=== PATIENT | female | born 1950 | race Two or more races ===

== ENCOUNTER 2017-12-15 22:48 | Inpatient (IN) | payer MEDICARE, OTHER ==
[~2017-12-15] VITALS: Ht 165.1 cm; Wt 88.5 kg
--- NOTE | 2017-12-15 22:52 | NUR ---
BBRA FROM HOME WITH C/O SUBSTERNAL CHEST PAIN, 05/04, RADIATING TO THE L SHOULDER AND L ARM. PT IS AAOX4. RESP EVEN AND NONE LABORED. VSS. NO S/S OF ACUTE DISTRESS NOTED. SKIN DRY, PINK, AND WARM TO TOUCH. PT DENIES N/V/D. PT GOWNED AND PLACED ON MONITOR AND POX. CALL LIGHT WITHIN REACH. PER EMS, 2 EMILE SPRAYS AND 162 ASPIRIN WAS GIVEN IN FIELD. DAUGHTER OF PT BEDSIDE. AWAITING MD FOR EVAL.
--- NOTE | 2017-12-15 22:52 | NUR ---
BEDSIDE FOR EVAL
[2017-12-15] MEDS ORDERED: NITROGLYCERIN PACKET 1 GM PACKET ONE (23:09)
[2017-12-15] MEDS ORDERED: NITROGLYCERIN 0.4 MG/TAB BOTTLE ONE (23:09)
[2017-12-15] MEDS ORDERED: ASPIRIN 81 MG TAB.CHEW ONE (23:11)
[2017-12-15 23:15] LABS: BASOPHILS # (AUTO) 0.1 /CMM (0.0-0.2); BASOPHILS % (AUTO) 0.8 % (0.0-2.0); EOSINOPHILS # (AUTO) 0.3 /CMM (0.0-0.7); EOSINOPHILS % (AUTO) 4.3 % (0.0-6.0); HEMATOCRIT 35 % (33-45); LYMPHOCYTES # (AUTO) 2.9 /CMM (0.8-4.8); MEAN CORPUSCULAR HEMOGLOBIN 29 PG (26.0-33.0); MEAN CORPUSCULAR HGB CONC 34 g/dl (31.0-36.0); MEAN CORPUSCULAR VOLUME 85 fL (82-100); MONOCYTES # (AUTO) 0.8 /CMM (0.1-1.30); MONOCYTES % (AUTO) 10.5 % (2.0-12.0); NEUTROPHILS # (AUTO) 3.3 /CMM (1.8-8.9); NEUTROPHILS % (AUTO) 45.4 % (43.0-81.0); PLATELET COUNT (AUTO) 222 /CMM (150-450); RDW COEFFICIENT OF VARIATION 13.6 (11.5-15.0); RED BLOOD CELL COUNT(AUTO) 4.17 MIL/uL (4.0-5.2); WHITE BLOOD COUNT (AUTO) 7.4 K/uL (4.3-11.0)
[2017-12-15 23:26] LABS: CALCIUM, SERUM 9.3 mg/dL (8.5-10.1); CARBON DIOXIDE 28 mmol/L (21-32); CHLORIDE 106 mmol/L (98-107); GLUCOSE 189 mg/dL (74-106); SODIUM SERUM 140 mmol/L (136-145); UREA NITROGEN, BLOOD 21 mg/dL (7-18)
[2017-12-15] MEDS ORDERED: ASPIRIN 81 MG TAB.CHEW PO ONE (23:30)
[2017-12-15] MEDS ORDERED: NITROGLYCERIN PACKET 1 GM PACKET TD ONE (23:30)
[2017-12-15] MEDS ORDERED: NITROGLYCERIN 0.4 MG/TAB BOTTLE SL ONE (23:30)
[2017-12-15 23:34] LABS: TROPONIN I < 0.017 ng/mL (0.00-0.056)
[2017-12-15 23:38] LABS: D-DIMER 0.27 mg/L(FEU (0.17-0.50); INR 1.02 (0.87-1.13)
[2017-12-15 23:39] LABS: ALANINE AMINOTRANSFERASE 15 U/L (12-78); ALBUMIN 3.3 g/dL (3.4-5.0); ALKALINE PHOSPHATASE 76 U/L (46-116); ASPARTATE AMINOTRANSFERASE 9 U/L (15-37); B-TYPE NATRIURETIC PEPTIDE 245 PG/ML (0-125); BILIRUBIN,DIRECT 0.1 mg/dL (0.0-0.2); BILIRUBIN,TOTAL 0.3 mg/dL (0.2-1.0); TOTAL PROTEIN, SERUM 7.3 g/dL (6.4-8.2)
[2017-12-15] MEDS ORDERED: CARVEDILOL 6.25 MG TABLET PO ONE (23:45)
--- NOTE | 2017-12-15 23:45 | NUR ---
TELE 320-2
--- NOTE | 2017-12-15 23:51 | NUR ---
ER TALKING TO DR. UNRULY WILLAMS REGARDING PT ADMISSION.
[2017-12-16] MEDS ORDERED: NITROGLYCERIN 0.4 MG/TAB BOTTLE SL PRN
[2017-12-16] MEDS ORDERED: MAGNESIUM HYDROXIDE 30 ML UDC PO PRN
[2017-12-16] MEDS ORDERED: Z GUARD REMEDY 2 OZ OINT TP PRN
[2017-12-16] MEDS ORDERED: ACETAMINOPHEN 325 MG TABLET PO PRN
[2017-12-16] MEDS ORDERED: MAG HYDROX/AL HYDROX/SIMETH 30 ML UDC PO PRN
[2017-12-16] MEDS ORDERED: DEXTROSE 50%-WATER 50 ML DISP.SYRIN IV PRN
[2017-12-16] MEDS ORDERED: HYDROCODONE/APAP 5/325MG 1 EACH TABLET PO PRN
[2017-12-16] MEDS ORDERED: ZOLPIDEM TARTRATE 5 MG TABLET PO PRN
[2017-12-16] MEDS ORDERED: ONDANSETRON HCL/PF 4 MG/2 ML VIAL IVP PRN
[2017-12-16] MEDS ORDERED: INSULIN REGULAR, HUMAN 100 UNIT/ML 3 ML VIAL SQ PRN
[2017-12-16] MEDS ORDERED: MORPHINE SULFATE INJ 4 MG/ML DISP.SYRIN IV PRN
--- NOTE | 2017-12-16 00:04 | NUR ---
REPORT CALLED TO EXTRACORPOREAL TECHNICIANTERESE FARRELL. WILL TRANSPORT PT VIA ACLS PROTOCOL.
[2017-12-16 00:45] VITALS: BP 144/71
--- NOTE | 2017-12-16 00:45 | NUR ---
PARTY DEMONSTRATOR NOTES 0045 PT ARRIVED TO TELE UNIT VIA GURNEY IN STABLE CONDITION. PT IS SLOVENIAN SPEAKING. PT ABLE TO AMBULATE FROM GURNEY TO BED. PT IS A/O X4, AFEBRILE. RESPIRATIONS ARE EVEN AND UNLABORED, NOT IN ANY ACUTE DISTRESS NOTED. DAUGHTER ARLEY AT BEDSIDE. PUPILS ARE REACTIVE TO LIGHT. BILATERAL HAND ASPHALT SPREADER OPERATOR ARE STRONG AND EQUAL. TELE LEADS PLACED WITH SINUS MARILIA 58. ABDOMEN IS SOFT AND NONDISTENDED, BOWEL SOUNDS ARE PRESENT IN ALL 4 QUADRANTS UPON AUSCULTATION. DENIES ANY BLADDER DISCOMFORT. PT ABLE TO AMBULATE TO BATHROOM AND URINATE WITH NO DIFFICULTIES. DENIES ANY CHEST PAIN, SOB, N/V. IV SITE TO RAC INTACT, NO INFILTRATION NOTED. DRESSING KEPT CLEAN AND DRY. NO SKIN ISSUES OR INJURIES NOTED. SAFETY MEASURES IN PLACE. BED IS IN ITS LOW AND LOCKED POSITION. INSTRUCTED PT TO USE CALL LIGHT WHEN ASSISTANCE IS NEEDED, VERBALIZED UNDERSTANDING. CALL LIGHT IS LEFT WITHIN REACH. DR. UNRULY WILLAMS MADE AWARE OF ADMISSION.
[2017-12-16] MEDS: BLOOD SUGAR DIAGNOSTIC 1 EACH STRIP IN SCH ×3 (02:20→12:00)
[2017-12-16 04:00] VITALS: BP 98/46
--- NOTE | 2017-12-16 06:22 | NUR ---
RN CLOSING NOTES ALL NEEDS MET AND RENDERED. PT IS A/O X4, RESPIRATIONS ARE EVEN AND UNLABORED, NOT IN ANY ACUTE DISTRESS NOTED. PT DENIES ANY CHEST PAIN, SOB, N/V. TELE LEADS ON READING SR MARILIA 56. NO C/O HEADACHE. IV SITE INTACT, NO INFILTRATION NOTED. DRESSING KEPT CLEAN AND DRY. SAFETY MEASURES IN PLACE.BED IS IN ITS LOW AND LOCKED POSITION. INSTRUCTED PT TO USE CALL LIGHT WHEN ASSISTANCE IS NEEDED, CALL LIGHT IS LEFT WITHIN REACH. WILL ENDORSE TO NEXT SHIFT FOR CONTINUITY OF CARE.
[2017-12-16 06:27] LABS: BASOPHILS % (AUTO) 0.6 % (0.0-2.0); EOSINOPHILS # (AUTO) 0.3 /CMM (0.0-0.7); EOSINOPHILS % (AUTO) 4.4 % (0.0-6.0); HEMATOCRIT 33 % (33-45); HEMOGLOBIN 11.4 g/dL (11.5-14.8); LYMPHOCYTES # (AUTO) 2.5 /CMM (0.8-4.8); LYMPHOCYTES % (AUTO) 41.6 % (20.0-44.0); MEAN CORPUSCULAR HEMOGLOBIN 29 PG (26.0-33.0); MEAN CORPUSCULAR HGB CONC 34 g/dl (31.0-36.0); MEAN CORPUSCULAR VOLUME 85 fL (82-100); MONOCYTES # (AUTO) 0.6 /CMM (0.1-1.30); MONOCYTES % (AUTO) 9.9 % (2.0-12.0); NEUTROPHILS # (AUTO) 2.7 /CMM (1.8-8.9); NEUTROPHILS % (AUTO) 43.5 % (43.0-81.0); PLATELET COUNT (AUTO) 201 /CMM (150-450); RDW COEFFICIENT OF VARIATION 13.5 (11.5-15.0); RED BLOOD CELL COUNT(AUTO) 3.93 MIL/uL (4.0-5.2); WHITE BLOOD COUNT (AUTO) 6.1 K/uL (4.3-11.0)
--- NOTE | 2017-12-16 06:38 | NUR ---
RN NOTES BLOOD SUGAR 150. PT IS CURRENTLY NPO, NO COVERAGE AT THIS TIME. NO S/SX OF HYPO/HYPERGLYCEMIA NOTED. WILL CONTINUE TO MONITOR.
[2017-12-16] MEDS ORDERED: IV NS 0.9% 1,000 ML IV PRN (07:06)
[2017-12-16 07:12] VITALS: BP 134/66
[2017-12-16 07:25] LABS: CREATININE 0.7 mg/dL (0.6-1.3); MAGNESIUM 1.5 mg/dL (1.8-2.4); PHOSPHORUS 3.8 mg/dL (2.5-4.9); POTASSIUM 3.8 mmol/L (3.5-5.1)
[2017-12-16 07:30] LABS: THYROID STIMULATING HORMONE 3.877 uIU/mL (0.358-3.74)
[2017-12-16] MEDS ORDERED: REGADENOSON 0.4 MG/5 ML DISP.SYRIN IVP ONE (07:30)
--- NOTE | 2017-12-16 07:40 | NUR ---
HYPERCIL CORE TRANSFORMER ASSEMBLER OPENING NOTE PATIENT IS ALERT AND ORIENTED x4. NO PAIN AT THIS TIME. NO SOB OR DISTRESS NOTED. CALL LIGHT WITHIN REACH. SAFETY MEASURES IMPLEMENTED. ABLE TO COMMUNICATE NEEDS. IV INTACT AND PATENT ON RIGHT AC 18G. CURRENTLY NPO AT THIS TIME FOR NUCLEAR MEDICINE STRESS TEST. BLOOD SUGARS TO BE MONITORED THROUGHOUT SHIFT. LABS PENDING AT THIS TIME. WILL CONTINUE TO MONITOR THROUGHOUT SHIFT
[2017-12-16 08:00] VITALS: BP 150/66
[2017-12-16 08:55] LABS: THYROID STIMULATING HORMONE 3.723 uIU/mL (0.358-3.74)
[2017-12-16] MEDS ORDERED: CARVEDILOL 6.25 MG TABLET PO SCH (09:00)
[2017-12-16] MEDS ORDERED: LOSARTAN POTASSIUM 50 MG TABLET PO SCH (09:00)
[2017-12-16] MEDS ORDERED: ASPIRIN EC 81 MG TABLET.DR PO SCH (09:00)
[2017-12-16] MEDS ORDERED: ENOXAPARIN SODIUM 40 MG/0.4 ML DISP.SYRIN SQ SCH (09:00)
[2017-12-16] MEDS ORDERED: AMLO10TA2 PO (10:59)
[2017-12-16] MEDS ORDERED: ERGO500014 PO (10:59)
[2017-12-16] MEDS ORDERED: PANT40TA4 PO (10:59)
[2017-12-16] MEDS ORDERED: FLUT1DIS3 IH (10:59)
[2017-12-16] MEDS ORDERED: METF500T4 PO (10:59)
[2017-12-16] MEDS ORDERED: CLOT15CR63 TP (10:59)
[2017-12-16] MEDS ORDERED: CARV25TA2 PO (10:59)
[2017-12-16] MEDS ORDERED: INSU100V27 SQ (10:59)
[2017-12-16] MEDS ORDERED: ROSU40TA PO (10:59)
[2017-12-16] MEDS ORDERED: BENA40TA2 PO (10:59)
[2017-12-16] MEDS ORDERED: EZET10TA27 PO (10:59)
[2017-12-16] MEDS ORDERED: ASPI-1169 PO (10:59)
[2017-12-16] MEDS: Magnesium 1GM/D5W 100ML PREMIX 100 ML IV SCH ×2 (11:17→12:17)
[2017-12-16] MEDS ORDERED: CARV6.252 PO (14:13)
[2017-12-16] MEDS ORDERED: LOSA50TA3 PO (14:13)
--- NOTE | 2017-12-16 16:27 | NUR ---
LITERACY EDUCATION PROFESSOR NOTE PATIENT IS ALERT AND ORIENTED X4. NO PAIN AT THIS TIME. NO COMPLAINTS OF CHEST PAIN. NO SOB OR DISTRESS NOTED. CALL LIGHT WITHIN REACH AT ALL TIMES. SAFETY MEASURES IMPLEMENTED. ABLE TO COMMUNICATE NEEDS. ALL DUE MEDICATIONS GIVEN ORDERED. ALL NURSING CARE NEEDS ATTENDED TO NEEDED. ALL DISCHARGE INSTRUCTIONS GIVEN TO PATIENT AND FAMILY MEMBER- ARLEY(DAUGHTER). ALL DISCHARGE INSTRUCTIONS TAUGHT BACK. ALL BELONGINGS ACCOUNTED FOR UPON DISCHARGE AND TAKEN WITH PATIENT AND FAMILY MEMBER. LEFT VIA PRIVATE CAR.
[2017-12-16] MEDS ORDERED: SIMVASTATIN 20 MG TABLET PO SCH (22:00)
== END 2017-12-16 16:30 | disposition home or self-care (01) | DRG 206 ==
LOC: ER 22:50 → TELE 23:54 → MED 12-16 09:11
DX: M94.0 Chondrocostal junction syndrome [Tietze] (principal); E11.65 Type 2 diabetes mellitus with hyperglycemia; I25.10 Atherosclerotic heart disease of native coronary artery without angina pectoris; E66.01 Morbid (severe) obesity due to excess calories; E78.5 Hyperlipidemia, unspecified; Z95.1 Presence of aortocoronary bypass graft; Z79.84 Long term (current) use of oral hypoglycemic drugs; I10 Essential (primary) hypertension; D64.9 Anemia, unspecified; F32.9 Major depressive disorder, single episode, unspecified; F41.9 Anxiety disorder, unspecified; Z68.32 Body mass index [BMI] 32.0-32.9, adult; Z79.82 Long term (current) use of aspirin; Z79.899 Other long term (current) drug therapy
CPT/HCPCS: 36415; 71045-TC; 80048-TC; 80061-TC; 80076-TC; 82728-TC; 82962-TC; 83540-TC; 83735-TC; 83880; 84100-TC; 84439-TC; 84443-TC; 84484-TC; 85025-TC; 85378-TC; 85730-TC; 93307-TC; A4606; A9502; J1650; J1815; J2785; Z7610